=== PATIENT | male | born 1995 | race African-American/Black ===

== ENCOUNTER 2017-12-01 10:21 | Emergency (ER) | payer SELFPAY ==
--- NOTE | 2017-12-01 11:10 | RAD ---
RIGHT THUMB 2 VIEWS: HISTORY: Crush injury. COMPARISON: None. FINDINGS: There appears to be lucency at the nailbed likely due to injury. No fracture. No cortical irregular ity or periosteal reaction. Joint space is preserved. IMPRESSION: Nailbed injury. POS: [facility]
== END 2017-12-01 11:08 | disposition home or self-care (01) ==
LOC: NAV ERS 10:21
DX: I96 Gangrene, not elsewhere classified (principal); F17.210 Nicotine dependence, cigarettes, uncomplicated

== ENCOUNTER 2020-06-15 04:57 | Emergency (ER) | payer SELFPAY ==
[2020-06-15] MEDS ORDERED: Ketorolac Tromethamine 60 MG/2 ML VIAL ONE (05:23)
[2020-06-15] MEDS ORDERED: Amoxicillin/Potassium Clav 875 MG TAB ONE (05:23)
[2020-06-15] MEDS ORDERED: Acetaminophen/Codeine 30-300mg Tablet ONE (05:23)
== END 2020-06-15 05:41 | disposition home or self-care (01) ==
LOC: NAV ERS 04:57
DX: K02.9 Dental caries, unspecified (principal); H61.23 Impacted cerumen, bilateral; R59.0 Localized enlarged lymph nodes; Z87.891 Personal history of nicotine dependence
CPT/HCPCS: 96372; 99282; J1885